=== PATIENT | female | born 1965 | race Caucasian/White ===

== ENCOUNTER 2019-07-09 13:11 | Outpatient (CLI) | payer BC | END 2019-07-09 21:08 | disposition home or self-care (01) | LOC: SMA 13:11 | PROVIDERS: ATTEND Family Medicine | DX: Z12.31 Encounter for screening mammogram for malignant neoplasm of breast (principal) | CPT/HCPCS: 77067 ==

== ENCOUNTER 2019-07-23 08:43 | Outpatient (CLI) | payer BC | END 2019-07-23 19:31 | disposition home or self-care (01) | LOC: SMA 08:43 | PROVIDERS: ATTEND Family Medicine | DX: R92.8 Other abnormal and inconclusive findings on diagnostic imaging of breast (principal) | CPT/HCPCS: 76642; 77065 ==